=== PATIENT | male | born 1990 | race Two or more races ===

== ENCOUNTER 2022-11-14 15:17 | Emergency (ER) | payer OTHER ==
[~2022-11-14] VITALS: Ht 170.2 cm; Wt 90.9 kg
[2022-11-14] MEDS ORDERED: CLINDAMYCIN HCL 150 MG CAPSULE PO ONE (16:00)
[2022-11-14] MEDS ORDERED: KETOROLAC TROMETHAMINE 30 MG/ML VIAL IM ONE (16:00)
[2022-11-14 16:01] VITALS: BP 152/83; PULSE 92; RESP 18; TEMP 98.5
[2022-11-14 16:45] LABS: COVID AG,FIA SOURCE NASOPHARYNGEAL
[2022-11-14 17:12] LABS: INFLUENZA TYPE A NEGATIVE FOR TYPE A (NEGATIVE); INFLUENZA TYPE B NEGATIVE FOR TYPE B (NEGATIVE)
[2022-11-14 17:14] LABS: RAPID GROUP A STREP NEGATIVE (NEGATIVE)
== END 2022-11-14 17:46 | disposition home or self-care (01) ==
LOC: EMS 15:20
DX: J03.90 Acute tonsillitis, unspecified (principal); Z88.0 Allergy status to penicillin; Z20.822 Contact with and (suspected) exposure to COVID-19
CPT/HCPCS: 99283; 87426; 87430; 87804; 96372; J1885